=== PATIENT | female | born 1955 | race Caucasian/White ===

== ENCOUNTER 2018-03-07 17:57 | Emergency (ER) | payer MEDICAID, OTHER ==
[~2018-03-07] VITALS: Ht 165.1 cm; Wt 68.5 kg
[2018-03-07 18:02] VITALS: BP 137/88
--- NOTE | 2018-03-07 18:13 | NUR ---
62 YO F BIB SELF W/ C/O RT FOOT PAIN STEP ON A NAIL TODAY; PUNCTURE WOUND BOTTOM OF RT FOOT NO BLEEDING NOTED; LAST TETANUS 10/29/2015. WOUND APPEARS CLEAN AND FREE OF DEBRIS TO THE NAKED EYE. PT AMBULATES W/ STEADY GAIT. DENIES N/V/FEVER. AAOX4, GCS 15, CMS INTACT, RR EVEN AND UNLABORED, LUNGS BL CLEAR. ABD SOFT, NON-TENDER. BOWEL SOUNDS ACTIVE. ER MD NOTIFIED. PT NEEDS MET, SAFETY PRECAUTIONS IN PLACE. WILL CONTINUE TO MONITOR.
[2018-03-07] MEDS ORDERED: IBUPROFEN 400 MG TAB PO ONE (18:25)
[2018-03-07 19:13] VITALS: BP 132/75
== END 2018-03-07 19:14 | disposition home or self-care (01) ==
LOC: MED 17:57
DX: S91.331A Puncture wound without foreign body, right foot, initial encounter (principal); J02.9 Acute pharyngitis, unspecified; W45.0XXA Nail entering through skin, initial encounter; Y93.89 Activity, other specified; Y92.59 Other trade areas as the place of occurrence of the external cause; Y99.8 Other external cause status
CPT/HCPCS: 99282